=== PATIENT | female | born 1970 | race Caucasian/White ===

== ENCOUNTER 2017-05-20 23:51 | Emergency (ER) | payer OTHER ==
--- NOTE | 2017-05-21 07:03 | ER ---
ADMIT: 05/20/2017 RM/LOC: ER [facility] MR#: [id number] [address] 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 #20, #21 tooth suspect related to periapical abscess, doubt any procedural injury which she is concerned by, also reassured her that this is not a stroke. Continue current medications, follow up with [facility] today. Gurdeep Davis MD/ olga lidia JOB #: [id number] CC: Gurdeep Davis MD, Attending Physician Aneta Heredia, Family Physician
== END 2017-05-21 00:20 | disposition home or self-care (01) ==
LOC: ER 23:51
DX: K04.7 Periapical abscess without sinus (principal); E03.9 Hypothyroidism, unspecified; Z79.899 Other long term (current) drug therapy